=== PATIENT | female | born 1985 | race Caucasian/White ===

== ENCOUNTER → 2016-09-17 | Outpatient (CLI) | payer MEDICAID | END | disposition home or self-care (01) | LOC: NUE 13:00 → SSS 13:00 → EDSTATUS 13:00 → NUE 13:20 | DX: Z68.43 Body mass index [BMI] 50.0-59.9, adult (principal) | CPT/HCPCS: 258 ==

== ENCOUNTER 2016-09-20 10:32 | Day surgery (SDC) | payer MEDICAID ==
[~2016-09-20] VITALS: Ht 180.3 cm; Wt 166.8 kg
--- NOTE | 2016-09-29 10:45 | OR ---
ADMIT: 09/20/2016 RM/LOC: [facility] MR#: [id number] [id number] JE [address] [place] [id number] Operative/Delivery Room Report SEX: F AGE: 31 : 1985 SURGERY DATE: 09/20/2016 SURGEON: Lewis Rossi MD PREOPERATIVE DIAGNOSES: Acute cholecystitis and cholelithiasis. POSTOPERATIVE DIAGNOSES: Acute cholecystitis and cholelithiasis. PROCEDURE PERFORMED: Laparoscopic cholecystectomy with intraoperative cholangiogram. BOARDER STEAM: TIM Hall. ANESTHESIA: General endotracheal with the addition of Marcaine in the wounds post postprocedure. ESTIMATED BLOOD LOSS: Approximately 10 mL. DESCRIPTION OF PROCEDURE: After appropriate informed consent was obtained, the patient was brought to the operating room. General endotracheal anesthesia was induced. The patient's abdomen was prepped and draped in the sterile fashion. A small infraumbilical incision was created. Veress needle introduced. The abdomen was insufflated with CO2. A 5 mm trocar was placed. The camera was introduced. The abdomen surveyed. She had no intraabdominal adhesions. Three additional ports were placed in the upper abdomen. Because of her body habitus and the thickness of the abdominal wall, it was difficult to manipulate the ports but ultimately, I was able to get hold of the gallbladder and retract it up and away from the liver and from the bowel below. There were some omental adhesions that were taken down with a combination of blunt dissection as well as with electrocautery. Infundibulum was grasped and tracked laterally. The cystic artery was lying anterior to the duct, so this was dissected out first. This was clipped and divided. The cystic duct was next identified, clipped on the gallbladder side. A small ductotomy was made. Cholangiogram catheter was introduced. Intraoperative cholangiogram was obtained. This revealed prompt emptying of contrast into the duodenum, good filling of right and left hepatic ducts and no evidence of any filling defects. The catheter was then removed. Three clips placed on ADMIT: 09/20/2016 RM/LOC: [facility] MR#: [id number] [id number] JE NI [address] [place] [address] Operative/Delivery Room Report SEX: F AGE: 31 : 1985 the cystic duct on the patient's side and the duct cut between clips. The gallbladder was then reflected off the liver bed using hook electrocautery. With the gallbladder freed up, it was placed in EndoCatch bag, and brought out through the subxiphoid port site. The port was reintroduced. Right upper quadrant inspected. This all appeared hemostatic. The subxiphoid fascial defects were then closed with [id number] 0 Vicryl suture. The abdomen was desufflated, ports removed, skin closed with 4-0 Monocryl in the subcuticular layer. It should also be noted that all the ports were injected with Marcaine prior to closing. Sterile dressings were applied. The patient tolerated the procedure well, was taken to the recovery room in stable condition. Christopher Gloria assisted in the entire procedure, his help was necessary for retraction and camera driving. Lewis Rossi MD/ piero JOB #: [id number] CC: Lewis Rossi, Attending Physician Pepe Richardson, Family Physician
== END 2016-09-20 16:25 | disposition home or self-care (01) ==
LOC: SSS 10:32
PROC: 0FT44ZZ Resection of Gallbladder, Percutaneous Endoscopic Approach (ICD-10-PCS; principal; 2016-09-20)
PROC: BF03YZZ Plain Radiography of Gallbladder and Bile Ducts using Other Contrast (ICD-10-PCS; principal; 2016-09-20)
DX: K80.10 Calculus of gallbladder with chronic cholecystitis without obstruction (principal); E66.9 Obesity, unspecified; K21.9 Gastro-esophageal reflux disease without esophagitis; I10 Essential (primary) hypertension; Z79.899 Other long term (current) drug therapy; Z98.890 Other specified postprocedural states; Z68.43 Body mass index [BMI] 50.0-59.9, adult